=== PATIENT | male | born 1950 | race Caucasian/White ===

== ENCOUNTER 2017-02-16 12:06 | Emergency (ER) | payer MEDICARE, OTHER ==
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
[2017-02-16 13:01] LABS: CHLORIDE,CL 107 mmol/L (101-111); SODIUM,NA 141 mmol/L (135-145)
[2017-02-16] MEDS ORDERED: Iopamidol 612 MG/ML 100 ML Bottle IVPUSH ONE (13:01)
[2017-02-16 13:25] VITALS: BP 174/76
--- NOTE | 2017-02-16 13:50 | CT ---
Clinical history: 66-year-old hypertensive 220 pound male who is had a "stem cell transplant" and ly mphoma presents now with abdominal mass (hernia?). Patient has also had previous cholecystectomy, appendectomy and "colon surgery". TECHNIQUE: Volume acquisition of data from the abdomen and pelvis obtained after oral ingestion one half bottle contrast and during intravenous administration 100 cc nonionic Isovue while lying supine on the Siemens multi slice CT scanner [place], [place]. All data arc hived in the PACS system for storage, reformatting and study. Interpretation: 1. Cardiomegaly. Lung bases clear. Densely calcified "cast" normal caliber aortoiliac vessels. 2. 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 3. *Ventral abdominal wall defect anteriorly with associated, underlying, large infraumbilical herni a, midline. (Some apparent incarceration small bowel loops to the left of midline but... no current signs of associated mechanical small or large bowel obstruction). 4. Sigmoid diverticulosis. 5. Cholecystectomy. Normal liver, stomach, pancreas, adrenal glands and kidneys. (Splenectomy?) 6. No pelvic or abdominal mass lesion, signs of inflammatory "dirty" peritoneal fat, mesenteric or r etroperitoneal lymphadenopathy, mechanical bowel obstruction, ascites or free air. CONCLUSION: Large ventral abdominal wall hernia (without mechanical bowel obstruction). Sigmoid dive rticulosis. Cardiomegaly and other signs of atherosclerotic vascular disease.
== END 2017-02-16 15:15 ==
LOC: DL.ED 12:06
DX: K56.69 Other intestinal obstruction (principal); K43.6 Other and unspecified ventral hernia with obstruction, without gangrene; I51.7 Cardiomegaly; M51.36 Other intervertebral disc degeneration, lumbar region; K57.30 Diverticulosis of large intestine without perforation or abscess without bleeding; I10 Essential (primary) hypertension; Z87.01 Personal history of pneumonia (recurrent); Z87.440 Personal history of urinary (tract) infections; E61.1 Iron deficiency; C85.90 Non-Hodgkin lymphoma, unspecified, unspecified site; Z79.82 Long term (current) use of aspirin; Z79.899 Other long term (current) drug therapy; Z88.2 Allergy status to sulfonamides; Z87.891 Personal history of nicotine dependence
CPT/HCPCS: 36415; 74177; 80053; 85025; 99285; Q9967

== ENCOUNTER 2017-09-03 06:28 | Day surgery (SDC) | payer MEDICARE, OTHER ==
[2017-09-03] MEDS ORDERED: Dexamethasone 4 MG/ML SDV IV ONE (06:29)
[2017-09-03] MEDS ORDERED: Midazolam 1 MG/ML 2 ML SDV IV ONE (06:29)
[2017-09-03] MEDS ORDERED: Proparacaine 0.5% Ophth Soln 15 ML Bottle EYERT ONE (06:30)
[2017-09-03] MEDS ORDERED: Ondansetron 4 MG/2 ML SDV IVPUSH PRN (06:30)
[2017-09-03] MEDS ORDERED: Acetaminophen/Codeine 300-30 MG Tab PO PRN (06:30)
[2017-09-03] MEDS ORDERED: Timolol Maleate 0.5% Ophth Soln 5 ML Bottle EYERT ONE (06:30)
[2017-09-03] MEDS ORDERED: Phenylephrine 10% Ophth Soln 5 ML Bot EYERT PRN (06:30)
[2017-09-03] MEDS ORDERED: Povidone-Iodine 5% Sterile Ophth Soln 30 ML Bottle EYERT ONE ×2 (06:30→08:06)
[2017-09-03] MEDS ORDERED: Cataract Ophth Solution EYERT ONE (06:30)
[2017-09-03] MEDS ORDERED: Moxifloxacin 0.5% Ophth Soln 3 ML Bottle EYERT ONE (06:30)
[2017-09-03] MEDS ORDERED: Acetaminophen 325 MG Tab PO PRN (06:30)
[2017-09-03] MEDS ORDERED: Phenylephrine 10% Ophth Soln 5 ML Bot EYERT ONE (06:30)
[2017-09-03] MEDS ORDERED: Midazolam 1 MG/ML 2 ML SDV ONE (07:23)
[2017-09-03] MEDS ORDERED: Dexamethasone 4 MG/ML SDV ONE (07:23)
[2017-09-03] MEDS: Sodium Chloride 0.9% 10 ML Syringe FLUSH PRN ×2 (07:49→09:24)
[2017-09-03] MEDS ORDERED: Tetracaine HCl/PF 0.5% 4 ML Bottle EYERT ONE (08:06)
[2017-09-03] MEDS ORDERED: Dexamethasone/Tobramycin 0.1-0.3% Ophth Oint 3.5 GM Tube EYERT ONE (08:07)
[2017-09-03] MEDS ORDERED: Diclofenac Sodium 0.1% Ophth Soln 5 ML Bottle EYERT ONE (08:07)
[2017-09-03] MEDS ORDERED: Chondroitin Sulfate/Hyaluronate Sodium Ophth Inj 0.75 ML Syringe EYERT ONE (08:07)
[2017-09-03] MEDS ORDERED: Apraclonidine 0.5% Ophth Soln 5 ML Bot EYERT ONE (08:07)
[2017-09-03] MEDS ORDERED: Lidocaine 1% 30 ML SDV ONE (08:07)
[2017-09-03] MEDS ORDERED: Vancomycin 500 MG SDV EYERT ONE (08:08)
[2017-09-03] MEDS ORDERED: Balanced Salt Solution Ophth Irrig 500 ML Bottle IOCULAR ONE (08:08)
[2017-09-03] MEDS ORDERED: Dexamethasone 4 MG/ML SDV IOCULAR ONE (08:11)
--- NOTE | 2017-09-03 09:45 | OR ---
DATE: 09/03/2017 PREOPERATIVE DIAGNOSIS: Cataract, right eye. POSTOPERATIVE DIAGNOSIS: Cataract, right eye. PROCEDURE: Extracapsular cataract extraction with intraocular lens implant, right eye. ANESTHESIA: Topical/local MAC. COMPLICATIONS: No complications occurred. INDICATION: Mr. Sandhu was seen in the clinic. His examination revealed visually significant cataract. He is symptomatic and requested surgery. Explained risks preoperatively, including but not limited to infection, retinal detachment, loss of vision, need for additional surgery, and risks associated with anesthesia. We discussed implant options. He requested a monofocal implant. OPERATIVE DESCRIPTION: After informed consent was obtained and the risks, benefits, and alternatives were explained, the patient was brought to the operative suite and topical anesthesia was administered. The patient was then prepped and draped in the sterile fashion, and attention was placed on the right eye. A sterile lid speculum was placed into the right eye to allow operative exposure. A full-thickness paracentesis was made in the temporal portion of the operative eye. Preservative-free lidocaine 0.1 mL was injected into the anterior chamber followed by viscoelastic. A full-thickness corneal incision was then made into the anterior chamber. A bent needle cystotome was used to create a small arlene in the anterior capsule. The capsulorrhexis forceps was then used to create a 360-degree curvilinear capsulorrhexis. The nucleus was then removed using a phacoemulsification handpiece and the remaining cortical material was then removed with irrigation and aspiration handpiece. Following removal of the cortical material, the capsular bag was then inspected and noted to be free of any holes or tears. Viscoelastic was then injected into the capsular bag and the intraocular lens was inserted into the capsular bag. The viscoelastic material was then removed from both the anterior and posterior chambers and from behind the IOL. The lens and capsular bag were then reinspected. The IOL was well centered and the capsular bag intact. The wound and paracentesis sites were inspected and hydrated with balanced saline solution. Both were found to be self-sealing. The intraocular pressure was assessed digitally and found to be within normal range. A good red reflex was noted at the completion of the procedure. No complications occurred during the operation. At the completion of the procedure, Maxitrol, Voltaren, and Iopidine drops were placed into the operative eye. A sterile eye shield was placed over the operative eye and the patient was transported to the postoperative recovery area having tolerated the procedure well. Postoperative instructions were given along with a postoperative appointment. The patient was advised to call with any questions or concerns. [facility] /[id number]
[2017-09-03 14:13] VITALS: BP 155/81
== END 2017-09-03 09:21 | disposition home or self-care (01) ==
LOC: DL.SDS 06:28
PROVIDERS: ATTEND Ophthalmology
DX: H25.811 Combined forms of age-related cataract, right eye (principal); Z88.2 Allergy status to sulfonamides; I10 Essential (primary) hypertension; E78.5 Hyperlipidemia, unspecified; C83.10 Mantle cell lymphoma, unspecified site; G45.9 Transient cerebral ischemic attack, unspecified; I48.91 Unspecified atrial fibrillation; Z90.49 Acquired absence of other specified parts of digestive tract; Z98.890 Other specified postprocedural states; Z94.84 Stem cells transplant status; Z87.891 Personal history of nicotine dependence; Z79.82 Long term (current) use of aspirin; Z79.899 Other long term (current) drug therapy; Z79.01 Long term (current) use of anticoagulants
CPT/HCPCS: 00142; 66984; A9270; C1780; J1100; J1642; J2250; J3370; J7050

== ENCOUNTER 2017-09-10 06:41 | Day surgery (SDC) | payer MEDICARE, OTHER ==
[~2017-09-10 06:41] MED LIST: Dilation Soln 1 EA EACH EYELF ONE; Moxifloxacin 0.5% Ophth Soln 3 ML Bottle EYELF ONE; Phenylephrine 10% Ophth Soln 5 ML Bot EYELF ONE; Povidone-Iodine 5% Sterile Ophth Soln 30 ML Bottle EYELF ONE; Proparacaine 0.5% Ophth Soln 15 ML Bottle EYELF ONE; Sodium Chloride 0.9% 10 ML Syringe FLUSH PRN; Timolol Maleate 0.5% Ophth Soln 5 ML Bottle EYELF ONE
[2017-09-10] MEDS ORDERED: Midazolam 1 MG/ML 2 ML SDV IV ONE (06:42)
[2017-09-10] MEDS ORDERED: Dexamethasone 4 MG/ML SDV IV ONE (06:42)
[2017-09-10] MEDS ORDERED: Midazolam 1 MG/ML 2 ML SDV ONE (07:34)
[2017-09-10] MEDS ORDERED: Dexamethasone 4 MG/ML SDV ONE (07:34)
[2017-09-10] MEDS ORDERED: Balanced Salt Solution Ophth Irrig 500 ML Bottle IOCULAR ONE (08:11)
[2017-09-10] MEDS ORDERED: Lidocaine 1% 30 ML SDV ONE (08:11)
[2017-09-10] MEDS ORDERED: Vancomycin 500 MG SDV EYELF ONE (08:11)
[2017-09-10] MEDS ORDERED: Chondroitin Sulfate/Hyaluronate Sodium Ophth Inj 0.75 ML Syringe EYELF ONE (08:12)
[2017-09-10] MEDS ORDERED: Tetracaine HCl/PF 0.5% 4 ML Bottle EYELF ONE (08:12)
[2017-09-10] MEDS ORDERED: Povidone-Iodine 5% Sterile Ophth Soln 30 ML Bottle EYELF ONE (08:12)
[2017-09-10] MEDS ORDERED: Diclofenac Sodium 0.1% Ophth Soln 5 ML Bottle EYELF ONE (08:13)
[2017-09-10] MEDS ORDERED: Dexamethasone/Tobramycin 0.1-0.3% Ophth Oint 3.5 GM Tube EYELF ONE (08:13)
[2017-09-10] MEDS ORDERED: Apraclonidine 0.5% Ophth Soln 5 ML Bot EYELF ONE (08:13)
--- NOTE | 2017-09-10 08:35 | OR ---
DATE: 09/10/2017 PREOPERATIVE DIAGNOSIS: Cataract, left eye. POSTOPERATIVE DIAGNOSIS: Cataract, left eye. PROCEDURE: Extracapsular cataract extraction with intraocular lens implant, left eye. ANESTHESIA: Topical/local MAC. COMPLICATIONS: None. INDICATION: Mr. Sandhu was seen in the clinic with complaints of blurred vision. Examination reveals visually significant cataract. He is symptomatic. He has requested cataract surgery. I explained risks preoperatively including but not limited to, infection, retinal detachment, loss of vision, need for additional surgery, and risks associated with anesthesia. We discussed implant options. He has requested a monofocal implant. OPERATIVE DESCRIPTION: After informed consent was obtained and the risks, benefits, and alternatives were explained, the patient was brought to the operative suite and topical anesthesia was administered. The patient was then prepped and draped in the sterile fashion and attention was placed on the left eye. A sterile lid speculum was placed into the left eye to allow operative exposure. A full-thickness paracentesis was made in the temporal portion of the operative eye. Preservative-free lidocaine 0.1 mL was injected into the anterior chamber followed by viscoelastic. A full-thickness corneal incision was then made into the anterior chamber. A bent needle cystotome was used to create a small arlene in the anterior capsule. The capsulorrhexis forceps was then used to create a 360-degree curvilinear capsulorrhexis. The nucleus was then removed using a phacoemulsification handpiece and the remaining cortical material was then removed with irrigation and aspiration handpiece. Following removal of the cortical material, the capsular bag was then inspected and noted to be free of any holes or tears. Viscoelastic was then injected into the capsular bag and the intraocular lens was inserted into the capsular bag. the viscoelastic material was then removed from both the anterior and posterior chambers and from behind the IOL. The lens and capsular bag were then reinspected. The IOL was well centered and the capsular bag intact. The wound and paracentesis sites were inspected and hydrated with balanced saline solution. Both were found to be self- sealing. The intraocular pressure was assessed digitally and found to be within normal range. A good red reflex was noted at the completion of the procedure. No complications occurred during the operation. At the completion of the procedure, Maxitrol, Voltaren, and Iopidine drops were placed into the operative eye. A sterile eye shield was placed over the operative eye and the patient was transported to the postoperative recovery area having tolerated the procedure well. Postoperative instructions were given along with a postoperative appointment. The patient was advised to call with any questions or concerns. No complications occurred. [facility] /[id number]
[2017-09-10 12:37] VITALS: BP 146/77
== END 2017-09-10 09:21 | disposition home or self-care (01) ==
LOC: DL.SDS 06:41
PROVIDERS: ATTEND Ophthalmology
DX: H25.812 Combined forms of age-related cataract, left eye (principal); I10 Essential (primary) hypertension; E78.5 Hyperlipidemia, unspecified; Z90.49 Acquired absence of other specified parts of digestive tract; Z98.890 Other specified postprocedural states; Z94.84 Stem cells transplant status; Z87.891 Personal history of nicotine dependence; Z90.81 Acquired absence of spleen; Z88.2 Allergy status to sulfonamides; Z79.899 Other long term (current) drug therapy; Z79.82 Long term (current) use of aspirin
CPT/HCPCS: 00142; 66984; A9270; C1780; J1100; J2250; J3370; J7050

== ENCOUNTER 2018-11-24 15:44 | Inpatient (IN) | payer MEDICARE, OTHER ==
[2018-11-24 16:45] LABS: ANION GAP 16.5
[2018-11-24] MEDS ORDERED: Piperacillin/Tazobactam 3.375 GM in Sodium Chloride 0.9% 100 ML IV ONE (16:54)
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
[2018-11-24] MEDS: Vancomycin 1.5 GM in Sodium Chloride 0.9% 500 ML IV SCH (18:35)
[2018-11-24] MEDS ORDERED: Sodium Chloride 0.9% 10 ML Syringe FLUSH PRN (18:48)
[2018-11-24] MEDS ORDERED: Acetaminophen 325 MG Tab PO PRN (18:53)
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
[2018-11-24] MEDS ORDERED: Dextrose 5%-0.9% NaCl 1,000 ML IV SCH (19:30)
[2018-11-24] MEDS: Metoprolol Tartrate 25 MG Tab PO SCH (21:21)
[2018-11-24] MEDS: atorvaSTATin 20 MG Tab PO SCH (21:21)
[2018-11-24] MEDS: oxyCODONE ER 10 MG TAB.ER PO SCH (21:21)
[2018-11-24] MEDS: NIFEdipine 30 MG Tab.ER PO SCH (21:22)
[2018-11-24] MEDS: Rivaroxaban 10 MG Tab PO SCH (21:23)
[2018-11-24] MEDS: Acetaminophen/oxyCODONE 325-5 MG Tab PO PRN (21:27)
[2018-11-25] MEDS: Piperacillin/Tazobactam 2.25 GM in Sodium Chloride 0.9% 50 ML IV SCH ×5 (00:09→23:56)
[2018-11-25 06:43] LABS: ANION GAP 13.4
[2018-11-25] MEDS ORDERED: Potassium Chloride 10 MEQ Tab.ER PO ONE (08:31)
[2018-11-25] MEDS ORDERED: Patient's Own Medication 1 Each PO SCH (09:00)
[2018-11-25] MEDS: Furosemide 40 MG Tab PO SCH (10:20)
[2018-11-25] MEDS: Multivitamins,Therapeutic Tab PO SCH (10:20)
[2018-11-25] MEDS: Aspirin 81 MG Tab.Chew PO SCH (10:20)
--- NOTE | 2018-11-25 11:09 | PCM.PN ---
- General Info Date of Service: 11/25/18 Admission Dx/Problem (Free Text): Admission Diagnosis/Problem Admission Diagnosis/Problem Cellulitis Subjective Update: I saw and examined the patient at the bedside He has no new complaints Cellulitis of right forearm is improving Functional Status: Reports: Pain Controlled - Review of Systems General: Reports: No Symptoms HEENT: Reports: No Symptoms Pulmonary: Reports: No Symptoms Cardiovascular: Reports: No Symptoms Gastrointestinal: Reports: No Symptoms Genitourinary: Reports: No Symptoms Musculoskeletal: Reports: Other (cellulitis of R forearm) - Patient Data Vitals - Most Recent: Last Vital Signs Temp 36.6 C 11/25/18 08:15 Pulse 63 11/25/18 08:15 Resp 20 11/25/18 08:15 BP 118/60 11/25/18 08:15 Pulse Ox 98 11/25/18 08:15 Weight - Most Recent: 101.605 kg I&O - Last 24 Hours: Intake & Output 11/24/18 11/25/18 11/25/18 22:59 06:59 14:59 Intake Total 1000 1100 400 Output Total 1100 Balance 1000 0 400 Lab Results Last 24 Hours: Laboratory Results - last 24 hr 11/24/18 11/24/18 11/24/18 Range/Units 16:18 16:18 16:18 WBC 15.0 H (5.0-10.0) 10^3/uL RBC 3.78 L (4.6-6.2) 10^6/uL Hgb 11.8 L (14.0-18.0) g/dL Hct 36.5 L (40.0-54.0) % MCV 96.6 (80-100) fL MCH 31.2 (27.0-34.0) pg MCHC 32.3 L (33.0-35.0) g/dL Plt Count 675 H D (150-450) 10^3/uL Lymph % (Auto) 16.4 L (20.5-50.1) % [place] % (Auto) 14.0 H (2-8) % Eos % (Auto) 0.2 L (1.0-3.0) % Add Manual Diff Yes Neutrophils % (Manual) 64 (42-75) % Band Neutrophils % 4 % Lymphocytes % (Manual) 15 L (20-50) % Atypical Lymphs % % Monocytes % (Manual) 13 H (2-8) % Eosinophils % (Manual) (1-3) % Basophils % (Manual) Metamyelocytes % 4 PT 11.1 (9.0-12.0) SEC INR 1.1 (0.9-1.2) APTT 32.0 (22.0-34.0) SEC Sodium 138 (135-145) mmol/L Potassium 3.5 L (3.6-5.0) mmol/L Chloride 99 L (101-111) mmol/L Carbon Dioxide 26.0 (21.0-31.0) mmol/L Anion Gap 16.5 BUN 30 H (7-18) mg/dL Creatinine 2.4 H (0.6-1.3) mg/dL Est Cr Clr Drug Dosing 28.64 mL/min Estimated GFR (MDRD) 27 BUN/Creatinine Ratio 12.50 Glucose 114 H (74-105) mg/dL Lactic Acid (0.5-2.2) mmol/L Calcium 8.1 L (8.4-10.2) mg/dl Magnesium (1.8-2.5) mg/dL Total Bilirubin 0.6 (0.2-1.0) mg/dL AST 24 (10-42) IU/L ALT 10 (10-60) IU/L Alkaline Phosphatase 62 (42-121) IU/L Total Protein 6.2 L (6.7-8.2) g/dl Albumin 3.4 (3.2-5.5) g/dl Globulin 2.8 Albumin/Globulin Ratio 1.21 11/24/18 11/25/18 11/25/18 Range/Units 16:18 06:14 06:14 WBC 15.1 H (5.0-10.0) 10^3/uL RBC 3.52 L (4.6-6.2) 10^6/uL Hgb 10.9 L (14.0-18.0) g/dL Hct 34.0 L (40.0-54.0) % MCV 96.6 (80-100) fL MCH 31.0 (27.0-34.0) pg MCHC 32.1 L (33.0-35.0) g/dL Plt Count 659 H (150-450) 10^3/uL Lymph % (Auto) (20.5-50.1) % [place] % (Auto) (2-8) % Eos % (Auto) (1.0-3.0) % Add Manual Diff Yes Neutrophils % (Manual) 63 (42-75) % Band Neutrophils % 6 % Lymphocytes % (Manual) 13 L (20-50) % Atypical Lymphs % 0 % Monocytes % (Manual) 13 H (2-8) % Eosinophils % (Manual) 4 H (1-3) % Basophils % (Manual) 1 Metamyelocytes % PT (9.0-12.0) SEC INR (0.9-1.2) APTT (22.0-34.0) SEC Sodium 137 (135-145) mmol/L Potassium 3.4 L (3.6-5.0) mmol/L Chloride 103 (101-111) mmol/L Carbon Dioxide 24.0 (21.0-31.0) mmol/L Anion Gap 13.4 BUN 27 H (7-18) mg/dL Creatinine 2.0 H (0.6-1.3) mg/dL Est Cr Clr Drug Dosing 34.37 mL/min Estimated GFR (MDRD) 33 BUN/Creatinine Ratio Glucose 104 (74-105) mg/dL Lactic Acid 1.9 (0.5-2.2) mmol/L Calcium 7.9 L (8.4-10.2) mg/dl Magnesium 1.6 L (1.8-2.5) mg/dL Total Bilirubin (0.2-1.0) mg/dL AST (10-42) IU/L ALT (10-60) IU/L Alkaline Phosphatase (42-121) IU/L Total Protein (6.7-8.2) g/dl Albumin (3.2-5.5) g/dl Globulin Albumin/Globulin Ratio Moy Results Last 24 Hours: Microbiology 11/24/18 16:08 Gram Stain - Final Wrist, Right Wound Culture - Preliminary Med Orders - Current: Current Medications Acetaminophen (Tylenol) 325 mg PO DAILY PRN PRN Reason: Pain (mild 1-3) Acyclovir (Zovirax) 400 mg PO Q30D [facility] Aspirin (Aspirin) 81 mg PO DAILY [facility] Last Admin: 11/25/18 10:20 Dose: 81 mg Atorvastatin Calcium (Lipitor) 40 mg PO BEDTIME [facility] Last Admin: 11/24/18 21:21 Dose: 40 mg Furosemide (Lasix) 40 mg PO DAILY [facility] Last Admin: 11/25/18 10:20 Dose: 40 mg Vancomycin HCl 1.5 gm/ Sodium (Chloride) 500 mls @ 333.333 mls/hr IV Q24H [facility] Last Admin: 11/24/18 18:35 Dose: 333.333 mls/hr Piperacillin Sod/Tazobactam (Sod 2.25 gm/ Sodium Chloride) 50 mls @ 100 mls/hr IV Q6HR [facility] Last Admin: 11/25/18 06:14 Dose: 100 mls/hr Metoprolol Tartrate (Lopressor) 25 mg PO BEDTIME [facility] Last Admin: 11/24/18 21:21 Dose: 25 mg Multivitamins (Thera) 1 each PO DAILY [facility] Last Admin: 11/25/18 10:20 Dose: 1 each Nifedipine (Procardia Xl) 30 mg PO BEDTIME [facility] Last Admin: 11/24/18 21:22 Dose: 30 mg Oxycodone HCl (Oxycontin) 10 mg PO BEDTIME [facility] Last Admin: 11/24/18 21:21 Dose: 10 mg Oxycodone/Acetaminophen (Percocet 325-5 Mg) 1 tab PO TID PRN PRN Reason: Pain (moderate 4-6) Last Admin: 11/24/18 21:27 Dose: 1 tab Imbruvica 420 Mg (Tablet Own Med) 420 each PO DAILY [facility] Rivaroxaban (Xarelto) 20 mg PO BEDTIME [facility] Last Admin: 11/24/18 21:23 Dose: 20 mg Sodium Chloride (Saline Flush) 10 ml FLUSH ASDIRECTED PRN PRN Reason: Keep Vein Open Sodium Chloride (Saline Flush) 10 ml FLUSH ASDIRECTED PRN PRN Reason: Keep Vein Open Vancomycin HCl (Pharmacy To Dose - Vancomycin) 1 dose .XX ONETIME ONE Stop: 11/24/18 16:55 Discontinued Medications Piperacillin Sod/Tazobactam (Sod 3.375 gm/ Sodium Chloride) 100 mls @ 200 mls/ hr IV ONETIME ONE Stop: 11/24/18 17:23 Last Admin: 11/24/18 17:13 Dose: 200 mls/hr Dextrose/Sodium Chloride (Dextrose 5%-Normal Saline) 1,000 mls @ 125 mls/hr IV ASDIRECTED [facility] Last Admin: 11/24/18 20:12 Dose: 125 mls/hr Potassium Chloride (Klor-Con 10) 40 meq PO ONETIME ONE Stop: 11/25/18 08:32 Last Admin: 11/25/18 10:20 Dose: 40 meq - Exam General: Alert, Oriented HEENT: Pupils Equal Neck: Supple Lungs: Clear to Auscultation Cardiovascular: Regular Rate, Regular Rhythm GI/Abdominal Exam: Normal Bowel Sounds Extremities: Redness Skin: Other (as prev described, improving right forearm redness and swelling) - Problem List Review Problem List Initiated/Reviewed/Updated: Yes - My Orders Last 24 Hours: My Active Orders 11/24/18 18:48 Patient Status [ADT] Routine May Shower [RC] ASDIRECTED Oxygen Therapy [RC] .PRN Up With Assistance [RC] ASDIRECTED VTE/DVT Education [RC] PER UNIT ROUTINE Vital Signs [RC] 00,04,08,12,16,20 Sodium Chloride 0.9% [Saline Flush] 10 ml FLUSH ASDIRECTED PRN Sodium Chloride 0.9% [Saline Flush] 10 ml FLUSH ASDIRECTED PRN Peripheral IV Insertion Adult [OM.PC] Routine Saline Lock Insert [OM.PC] Routine Resuscitation Status Routine 11/24/18 18:53 Acetaminophen [Tylenol] 325 mg PO DAILY PRN Acetaminophen/oxyCODONE [Percocet 325-5 MG] 1 tab PO TID PRN 11/24/18 21:00 Metoprolol Tartrate [Lopressor] 25 mg PO BEDTIME NIFEdipine [Procardia XL] 30 mg PO BEDTIME Rivaroxaban [Xarelto] 20 mg PO BEDTIME atorvaSTATin [Lipitor] 40 mg PO BEDTIME oxyCODONE ER [OxyCONTIN] 10 mg PO BEDTIME 11/25/18 00:00 Piperacillin/Tazobactam [Zosyn] 2.25 gm Sodium Chloride 0.9% [Normal Saline] 50 ml IV Q6HR 11/25/18 09:00 Aspirin 81 mg PO DAILY Furosemide [Lasix] 40 mg PO DAILY Multivitamins,Therapeutic [Thera] 1 each PO DAILY Patient's Own Medication [Ptom] 420 each PO DAILY 11/25/18 Breakfast Regular Diet [DIET] 11/26/18 05:11 BASIC METABOLIC PANEL,BMP [CHEM] AM CBC WITH AUTO DIFF [HEME] AM MAGNESIUM [CHEM] AM 12/17/18 19:00 Acyclovir [Zovirax] 400 mg PO Q30D - Plan Plan:: #Right forearm cellulitis #Hx of Non-Hodgkins Lymphoma IV Vanc + IV Zosyn renally dosed If lesion does not improve, may need biopsy for possible vasculitis #HX of atrial fibrillation on AC continue metoprolol continue xarelto #Hx of Hypertension BP stable continue home BP meds #CKD Cr at baseline renally dose medications #DVT ppx on xarelto
[2018-11-25] MEDS: IMBRUVICA 420 MG PO SCH (11:53)
[2018-11-25] MEDS: Acetaminophen/oxyCODONE 325-5 MG Tab PO PRN ×2 (17:25→21:55)
[2018-11-25] MEDS: Vancomycin 1.5 GM in Sodium Chloride 0.9% 500 ML IV SCH (17:58)
[2018-11-25] MEDS: NIFEdipine 30 MG Tab.ER PO SCH (21:48)
[2018-11-25] MEDS: Metoprolol Tartrate 25 MG Tab PO SCH (21:48)
[2018-11-25] MEDS: atorvaSTATin 20 MG Tab PO SCH (21:48)
[2018-11-25] MEDS: Rivaroxaban 10 MG Tab PO SCH (21:48)
[2018-11-25] MEDS: oxyCODONE ER 10 MG TAB.ER PO SCH (21:49)
[2018-11-25] MEDS: Sodium Chloride 0.9% 10 ML Syringe FLUSH PRN (23:56)
[2018-11-26] MEDS: Sodium Chloride 0.9% 10 ML Syringe FLUSH PRN ×3 (00:36→06:05)
[2018-11-26] MEDS: Piperacillin/Tazobactam 2.25 GM in Sodium Chloride 0.9% 50 ML IV SCH ×3 (05:33→17:15)
[2018-11-26 06:48] LABS: ANION GAP 15.6
[2018-11-26] MEDS: Multivitamins,Therapeutic Tab PO SCH (08:59)
[2018-11-26] MEDS: Aspirin 81 MG Tab.Chew PO SCH (08:59)
[2018-11-26] MEDS: IMBRUVICA 420 MG PO SCH (08:59)
[2018-11-26] MEDS: Furosemide 40 MG Tab PO SCH (08:59)
[2018-11-26] MEDS: Docusate Sodium 100 MG Cap PO SCH ×2 (13:41→21:16)
[2018-11-26] MEDS: Vancomycin 1.5 GM in Sodium Chloride 0.9% 500 ML IV SCH (17:40)
[2018-11-26] MEDS: Acetaminophen/oxyCODONE 325-5 MG Tab PO PRN ×2 (17:40→21:17)
--- NOTE | 2018-11-26 17:57 | PCM.PN ---
- General Info Date of Service: 11/26/18 Admission Dx/Problem (Free Text): Admission Diagnosis/Problem Admission Diagnosis/Problem Cellulitis Subjective Update: I saw and examined the patient at the bedside He has no new complaints States that cellulitis of right forearm is unchanged from yesterday. Functional Status: Reports: Pain Controlled, Tolerating Diet, Ambulating (No new sympotms. ) - Review of Systems General: Reports: No Symptoms HEENT: Reports: No Symptoms Pulmonary: Reports: No Symptoms Cardiovascular: Reports: No Symptoms Gastrointestinal: Reports: No Symptoms Genitourinary: Reports: No Symptoms Musculoskeletal: Reports: Other (Cellulitis of right dorsal hand, appears to have involved to lower arm but improved, small pocket of bulla on dorsum on hand. ) - Patient Data Vitals - Most Recent: Last Vital Signs Temp 97.3 F 11/26/18 12:24 Pulse 72 11/26/18 12:24 Resp 20 11/26/18 12:24 BP 121/63 11/26/18 12:24 Pulse Ox 98 11/26/18 12:24 Weight - Most Recent: 224 lb 9.6 oz I&O - Last 24 Hours: Intake & Output 11/26/18 11/26/18 11/26/18 06:59 14:59 22:59 Intake Total 100 360 43 Balance 100 360 43 Lab Results Last 24 Hours: Laboratory Results - last 24 hr 11/26/18 11/26/18 Range/Units 06:15 06:15 WBC 15.4 H (5.0-10.0) 10^3/uL RBC 3.45 L (4.6-6.2) 10^6/uL Hgb 10.8 L (14.0-18.0) g/dL Hct 33.8 L (40.0-54.0) % MCV 98.0 (80-100) fL MCH 31.3 (27.0-34.0) pg MCHC 32.0 L (33.0-35.0) g/dL Plt Count 617 H (150-450) 10^3/uL Lymph % (Auto) 13.2 L (20.5-50.1) % [place] % (Auto) 15.8 H (2-8) % Eos % (Auto) 3.6 H (1.0-3.0) % Add Manual Diff Yes Neutrophils % (Manual) 73 (42-75) % Lymphocytes % (Manual) 11 L (20-50) % Monocytes % (Manual) 10 H (2-8) % Eosinophils % (Manual) 6 H (1-3) % Sodium 139 (135-145) mmol/L Potassium 3.6 (3.6-5.0) mmol/L Chloride 103 (101-111) mmol/L Carbon Dioxide 24.0 (21.0-31.0) mmol/L Anion Gap 15.6 BUN 22 H (7-18) mg/dL Creatinine 2.0 H (0.6-1.3) mg/dL Est Cr Clr Drug Dosing 34.37 mL/min Estimated GFR (MDRD) 33 Glucose 95 (74-105) mg/dL Calcium 8.1 L (8.4-10.2) mg/dl Magnesium 1.6 L (1.8-2.5) mg/dL [place] Results Last 24 Hours: Microbiology 11/24/18 16:27 Aerobic Blood Culture - Preliminary Blood - Venous - Lab Draw NO GROWTH AFTER 2 DAYS Anaerobic Blood Culture - Preliminary NO GROWTH AFTER 2 DAYS 11/24/18 16:18 Aerobic Blood Culture - Preliminary Blood - Venous NO GROWTH AFTER 2 DAYS Anaerobic Blood Culture - Preliminary NO GROWTH AFTER 2 DAYS 11/24/18 16:08 Gram Stain - Final Wrist, Right Wound Culture - Preliminary Med Orders - Current: Current Medications Acetaminophen (Tylenol) 325 mg PO DAILY PRN PRN Reason: Pain (mild 1-3) Acyclovir (Zovirax) 400 mg PO Q30D [facility] Aspirin (Aspirin) 81 mg PO DAILY [facility] Last Admin: 11/26/18 08:59 Dose: 81 mg Atorvastatin Calcium (Lipitor) 40 mg PO BEDTIME [facility] Last Admin: 11/25/18 21:48 Dose: 40 mg Docusate Sodium (Colace) 200 mg PO BID [facility] Stop: 11/29/18 21:00 Last Admin: 11/26/18 13:41 Dose: 200 mg Furosemide (Lasix) 40 mg PO DAILY [facility] Last Admin: 11/26/18 08:59 Dose: 40 mg Vancomycin HCl 1.5 gm/ Sodium (Chloride) 500 mls @ 333.333 mls/hr IV Q24H [facility] Last Admin: 11/26/18 17:40 Dose: 333.333 mls/hr Piperacillin Sod/Tazobactam (Sod 2.25 gm/ Sodium Chloride) 50 mls @ 100 mls/hr IV Q6HR [facility] Last Admin: 11/26/18 17:15 Dose: 100 mls/hr Metoprolol Tartrate (Lopressor) 25 mg PO BEDTIME [facility] Last Admin: 11/25/18 21:48 Dose: 25 mg Multivitamins (Thera) 1 each PO DAILY [facility] Last Admin: 11/26/18 08:59 Dose: 1 each Nifedipine (Procardia Xl) 30 mg PO BEDTIME [facility] Last Admin: 11/25/18 21:48 Dose: 30 mg Oxycodone HCl (Oxycontin) 10 mg PO BEDTIME [facility] Last Admin: 11/25/18 21:49 Dose: 10 mg Oxycodone/Acetaminophen (Percocet 325-5 Mg) 1 tab PO TID PRN PRN Reason: Pain (moderate 4-6) Last Admin: 11/26/18 17:40 Dose: 1 tab Imbruvica 420 Mg (Tablet Own Med) 420 each PO DAILY [facility] Last Admin: 11/26/18 08:59 Dose: 420 each Rivaroxaban (Xarelto) 20 mg PO BEDTIME [facility] Last Admin: 11/25/18 21:48 Dose: 20 mg Sodium Chloride (Saline Flush) 10 ml FLUSH ASDIRECTED PRN PRN Reason: Keep Vein Open Last Admin: 11/26/18 06:05 Dose: 10 ml Sodium Chloride (Saline Flush) 10 ml FLUSH ASDIRECTED PRN PRN Reason: Keep Vein Open Vancomycin HCl (Pharmacy To Dose - Vancomycin) 1 dose .XX ONETIME ONE Stop: 11/24/18 16:55 Discontinued Medications Piperacillin Sod/Tazobactam (Sod 3.375 gm/ Sodium Chloride) 100 mls @ 200 mls/ hr IV ONETIME ONE Stop: 11/24/18 17:23 Last Admin: 11/24/18 17:13 Dose: 200 mls/hr Dextrose/Sodium Chloride (Dextrose 5%-Normal Saline) 1,000 mls @ 125 mls/hr IV ASDIRECTED [facility] Last Admin: 11/24/18 20:12 Dose: 125 mls/hr Potassium Chloride (Klor-Con 10) 40 meq PO ONETIME ONE Stop: 11/25/18 08:32 Last Admin: 11/25/18 10:20 Dose: 40 meq - Problem List & Annotations (1) Cellulitis of right upper extremity SNOMED Code(s): 825870689 Code(s): L03.113 - CELLULITIS OF RIGHT UPPER LIMB Status: Acute Current Visit: Yes (2) History of non-Hodgkin's lymphoma SNOMED Code(s): 529813769 Code(s): Z85.72 - PERSONAL HISTORY OF NON-HODGKIN LYMPHOMAS Status: Acute Current Visit: Yes (3) Afib SNOMED Code(s): 67693952 Code(s): I48.91 - UNSPECIFIED ATRIAL FIBRILLATION Status: Acute Current Visit: No - Problem List Review Problem List Initiated/Reviewed/Updated: Yes - My Orders Last 24 Hours: My Active Orders 11/26/18 08:30 Patient Status [ADT] Routine 11/26/18 13:00 Docusate Sodium [Colace] 200 mg PO BID 11/27/18 06:00 CBC WITH AUTO DIFF [HEME] Routine CREATININE W/GFR [CHEM] Routine RENAL FUNCTION PANEL,RFP [CHEM] Routine 11/28/18 17:30 VANCOMYCIN TROUGH [CHEM] Timed - Plan Plan:: #Right forearm cellulitis #Hx of Non-Hodgkins Lymphoma IV Vanc + IV Zosyn renally dosed If lesion does not improve, may need biopsy for possible vasculitis #HX of atrial fibrillation on AC continue metoprolol continue xarelto #Hx of Hypertension BP stable continue home BP meds #CKD Cr at baseline renally dose medications #DVT ppx on xarelto
[2018-11-26] MEDS: NIFEdipine 30 MG Tab.ER PO SCH (21:15)
[2018-11-26] MEDS: Rivaroxaban 10 MG Tab PO SCH (21:15)
[2018-11-26] MEDS: Metoprolol Tartrate 25 MG Tab PO SCH (21:15)
[2018-11-26] MEDS: atorvaSTATin 20 MG Tab PO SCH (21:16)
[2018-11-26] MEDS: oxyCODONE ER 10 MG TAB.ER PO SCH (21:16)
[2018-11-27] MEDS: Piperacillin/Tazobactam 2.25 GM in Sodium Chloride 0.9% 50 ML IV SCH ×6 (05:50→17:11)
[2018-11-27 07:04] LABS: ANION GAP 13.4
[2018-11-27] MEDS: Multivitamins,Therapeutic Tab PO SCH (08:45)
[2018-11-27] MEDS: Aspirin 81 MG Tab.Chew PO SCH (08:45)
[2018-11-27] MEDS: Furosemide 40 MG Tab PO SCH (08:46)
[2018-11-27] MEDS: Docusate Sodium 100 MG Cap PO SCH (08:46)
[2018-11-27] MEDS: IMBRUVICA 420 MG PO SCH (08:46)
[2018-11-27] MEDS ORDERED: Potassium Chloride 10 MEQ Tab.ER PO ONE (10:00)
--- NOTE | 2018-11-27 12:34 | PCM.DCSUM1 ---
Discharge Summary - Hospital Course Free Text/Narrative:: 68 yo M with PMH of Non-Hodgkin's Lymphoma on Rituxan, atrial fibrillation on xarelto, CKD 3-4, hypertension who presents with redness and swelling of the right forearm and hand of three days duration. Also noticed small rash on dorsal aspect of left hand and rash under the left eyelid. The admitting provider discussed with Dr. Sullivan ([phone]) and he informed the admitting provider that patient has had a similiar rash in the past that was treated with IV antibiotics with resolution. They agreed to give it a trial in this case. However given the multiple lesions, this could be an underlying vasculitis ( that was secondarily infected) and may need a biopsy. Started on IV Zosyn and IV Vanc. Rash did not improve much for [address] Sullivan, who agreed that patient be discharged and to receive daily vancomycin infusion as outpatient with follow up with General Surgery and Dr. Sullivan. Patient agreed to be discharged home to receive outpatient vancomycin infusion daily. He was scheduled to see general surgeon for biopsy on 11/30/2018 and to follow up with Dr. Sullivan on 12/03/18. Diagnosis: Stroke: No - Discharge Data Discharge Date: 11/27/18 Discharge Disposition: Home, Self-Care 01 Condition: Good - Discharge Diagnosis/Problem(s) (1) Cellulitis of right upper extremity SNOMED Code(s): 649853794 ICD Code: L03.113 - CELLULITIS OF RIGHT UPPER LIMB Status: Acute Current Visit: Yes (2) History of non-Hodgkin's lymphoma SNOMED Code(s): 971418650 ICD Code: Z85.72 - PERSONAL HISTORY OF NON-HODGKIN LYMPHOMAS Status: Acute Current Visit: Yes (3) Afib SNOMED Code(s): 46102441 ICD Code: I48.91 - UNSPECIFIED ATRIAL FIBRILLATION Status: Acute Current Visit: No - Patient Instructions Diet: Regular Diet as Tolerated Activity: As Tolerated Showering/Bathing: May Shower (Cover right hand with dressing before shower. ) Wound/Incision Care: Keep Operative Site/Wound Site Clean and Dry, Change Dressing Daily Notify Provider of: Fever, Increased Pain, Swelling and Redness, Drainage - Discharge Plan *PRESCRIPTION DRUG MONITORING PROGRAM REVIEWED*: No *COPY OF PRESCRIPTION DRUG MONITORING REPORT IN PATIENT NADJA: Not Applicable Home Medications: Home Meds Aspirin [Maryam Chewable Aspirin] 81 mg PO DAILY 08/13/14 [History] Multivit-Min/FA/Lycopene/Lut [Centrum Silver] 1 tab PO DAILY 08/13/14 [History] Metoprolol Tartrate 25 mg PO BEDTIME 09/11/16 [History] Rivaroxaban [Xarelto] 20 mg PO BEDTIME 09/11/16 [History] atorvaSTATin [Lipitor] 40 mg PO BEDTIME 09/11/16 [History] oxyCODONE HCl/Acetaminophen [Oxycodone-Acetaminophen 5-325] 1 tab PO TID PRN [History] Acetaminophen 325 mg PO DAILY PRN 10/02/18 [History] Acyclovir [Zovirax] 400 mg PO .MONTHLY 11/24/18 [History] Furosemide 40 mg PO DAILY 11/24/18 [History] Ibrutinib [Imbruvica] 420 mg PO DAILY 11/24/18 [History] NIFEdipine [Nifedipine ER] 30 mg PO BEDTIME 11/24/18 [History] oxyCODONE ER [OxyCONTIN] 10 mg PO BEDTIME 11/24/18 [History] Acetaminophen [Tylenol] 325 mg PO DAILY PRN tablet 11/27/18 [Rx] Patient's Own Medication [Ptom] 420 each PO DAILY each 11/27/18 [Rx] Rivaroxaban [Xarelto] 20 mg PO BEDTIME tablet 11/27/18 [Rx] Vancomycin 1.5 gm IV Q24H sdv 11/27/18 [Rx] Oxygen Therapy Mode: Room Air Forms: ED Department Discharge Referrals: PCP,None [Primary Care Provider] - - Discharge Summary/Plan Comment DC Time >30 min.: Yes - General Info Admission Dx/Problem (Free Text: Admission Diagnosis/Problem Admission Diagnosis/Problem Cellulitis Subjective Update: No acute events overnight. Reports he is doing okay today. Lesion on right arm has not improved and also not worsened. Functional Status: Reports: Pain Controlled - Review of Systems General: Reports: No Symptoms HEENT: Reports: No Symptoms Pulmonary: Reports: No Symptoms Cardiovascular: Reports: No Symptoms, Lightheadedness Gastrointestinal: Reports: No Symptoms Genitourinary: Reports: No Symptoms Musculoskeletal: Reports: No Symptoms Skin: Reports: Rash (Unchanged. ) Neurological: Reports: No Symptoms Psychiatric: Reports: No Symptoms - Patient Data Vitals - Most Recent: Last Vital Signs Temp 98.5 F 11/27/18 11:32 Pulse 60 11/27/18 11:32 Resp 18 11/27/18 11:32 BP 120/57 L 11/27/18 11:32 Pulse Ox 97 11/27/18 11:32 Weight - Most Recent: 224 lb 12.8 oz I&O - Last 24 hours: Intake & Output 11/26/18 11/27/18 11/27/18 22:59 06:59 14:59 Intake Total 283 50 460 Balance 283 50 460 Lab Results - Last 24 hrs: Laboratory Results - last 24 hr 11/27/18 11/27/18 Range/Units 06:25 06:25 WBC 15.9 H (5.0-10.0) 10^3/uL RBC 3.34 L (4.6-6.2) 10^6/uL Hgb 10.4 L (14.0-18.0) g/dL Hct 32.8 L (40.0-54.0) % MCV 98.2 (80-100) fL MCH 31.1 (27.0-34.0) pg MCHC 31.7 L (33.0-35.0) g/dL Plt Count 615 H (150-450) 10^3/uL Add Manual Diff Yes Neutrophils % (Manual) 76 H (42-75) % Lymphocytes % (Manual) 11 L (20-50) % Monocytes % (Manual) 9 H (2-8) % Eosinophils % (Manual) 4 H (1-3) % Sodium 139 (135-145) mmol/L Potassium 3.4 L (3.6-5.0) mmol/L Chloride 105 (101-111) mmol/L Carbon Dioxide 24.0 (21.0-31.0) mmol/L Anion Gap 13.4 BUN 21 H (7-18) mg/dL Creatinine 2.0 H (0.6-1.3) mg/dL Est Cr Clr Drug Dosing 34.37 mL/min Estimated GFR (MDRD) 33 BUN/Creatinine Ratio 10.50 Glucose 85 (74-105) mg/dL Calcium 7.8 L (8.4-10.2) mg/dl Phosphorus 4.5 (2.5-4.6) mg/dL Albumin 3.0 L (3.2-5.5) g/dl ANITRA Results - Last 24 hrs: Microbiology 11/24/18 16:08 Gram Stain - Final Wrist, Right Wound Culture - Final Staphylococcus Aureus 11/24/18 16:27 Aerobic Blood Culture - Preliminary Blood - Venous - Lab Draw NO GROWTH AFTER 2 DAYS Anaerobic Blood Culture - Preliminary NO GROWTH AFTER 2 DAYS 11/24/18 16:18 Aerobic Blood Culture - Preliminary Blood - Venous NO GROWTH AFTER 2 DAYS Anaerobic Blood Culture - Preliminary NO GROWTH AFTER 2 DAYS Med Orders - Current: Current Medications Acetaminophen (Tylenol) 325 mg PO DAILY PRN PRN Reason: Pain (mild 1-3) Acyclovir (Zovirax) 400 mg PO Q30D [facility] Aspirin (Aspirin) 81 mg PO DAILY [facility] Last Admin: 11/27/18 08:45 Dose: 81 mg Atorvastatin Calcium (Lipitor) 40 mg PO BEDTIME [facility] Last Admin: 11/26/18 21:16 Dose: 40 mg Docusate Sodium (Colace) 200 mg PO BID [facility] Stop: 11/29/18 21:00 Last Admin: 11/27/18 08:46 Dose: Not Given Furosemide (Lasix) 40 mg PO DAILY [facility] Last Admin: 11/27/18 08:46 Dose: 40 mg Vancomycin HCl 1.5 gm/ Sodium (Chloride) 500 mls @ 333.333 mls/hr IV Q24H [facility] Last Admin: 11/26/18 17:40 Dose: 333.333 mls/hr Piperacillin Sod/Tazobactam (Sod 2.25 gm/ Sodium Chloride) 50 mls @ 100 mls/hr IV Q6HR [facility] Last Admin: 11/27/18 11:54 Dose: 100 mls/hr Metoprolol Tartrate (Lopressor) 25 mg PO BEDTIME [facility] Last Admin: 11/26/18 21:15 Dose: 25 mg Multivitamins (Thera) 1 each PO DAILY [facility] Last Admin: 11/27/18 08:45 Dose: 1 each Nifedipine (Procardia Xl) 30 mg PO BEDTIME [facility] Last Admin: 11/26/18 21:15 Dose: 30 mg Oxycodone HCl (Oxycontin) 10 mg PO BEDTIME [facility] Last Admin: 11/26/18 21:16 Dose: 10 mg Oxycodone/Acetaminophen (Percocet 325-5 Mg) 1 tab PO TID PRN PRN Reason: Pain (moderate 4-6) Last Admin: 11/26/18 21:17 Dose: 1 tab Imbruvica 420 Mg (Tablet Own Med) 420 each PO DAILY [facility] Last Admin: 11/27/18 08:46 Dose: 420 each Rivaroxaban (Xarelto) 20 mg PO BEDTIME [facility] Last Admin: 11/26/18 21:15 Dose: 20 mg Sodium Chloride (Saline Flush) 10 ml FLUSH ASDIRECTED PRN PRN Reason: Keep Vein Open Last Admin: 11/26/18 06:05 Dose: 10 ml Sodium Chloride (Saline Flush) 10 ml FLUSH ASDIRECTED PRN PRN Reason: Keep Vein Open Vancomycin HCl (Pharmacy To Dose - Vancomycin) 1 dose .XX ONETIME ONE Stop: 11/24/18 16:55 Discontinued Medications Piperacillin Sod/Tazobactam (Sod 3.375 gm/ Sodium Chloride) 100 mls @ 200 mls/ hr IV ONETIME ONE Stop: 11/24/18 17:23 Last Admin: 11/24/18 17:13 Dose: 200 mls/hr Dextrose/Sodium Chloride (Dextrose 5%-Normal Saline) 1,000 mls @ 125 mls/hr IV ASDIRECTED [facility] Last Admin: 11/24/18 20:12 Dose: 125 mls/hr Potassium Chloride (Klor-Con 10) 40 meq PO ONETIME ONE Stop: 11/25/18 08:32 Last Admin: 11/25/18 10:20 Dose: 40 meq Potassium Chloride (Klor-Con 10) 20 meq PO ONETIME ONE Stop: 11/27/18 10:01 Last Admin: 11/27/18 10:40 Dose: 20 meq - Exam General: Reports: Alert, Oriented, No Acute Distress HEENT: Reports: Pupils Equal, Pupils Reactive, EOMI, Mucous Membr. Moist/[place] Neck Neck: Reports: Supple Lungs: Reports: Clear to Auscultation, Normal Respiratory Effort Cardiovascular: Reports: Regular Rate, Regular Rhythm GI/Abdominal Exam: Normal Bowel Sounds, Soft, Non-Tender, No Distention (Male) Exam: Deferred Extremities: No Pedal Edema, Redness, Other (area of erythema and bulla on dorsum of right hand unchanged.) Skin: Reports: Other Neurological: Reports: No New Focal Deficit Psy/Mental Status: Reports: Alert, Normal Affect
[2018-11-27] MEDS: Vancomycin 1.5 GM in Sodium Chloride 0.9% 500 ML IV SCH ×2 (15:20→17:11)
[2018-11-27] MEDS: Sodium Chloride 0.9% 10 ML Syringe FLUSH PRN (15:21)
[2018-11-27 15:55] VITALS: BP 119/40
[2018-12-17] MEDS ORDERED: Acyclovir 200 MG Cap PO SCH (19:00)
== END 2018-11-27 17:49 | disposition home or self-care (01) | DRG 546 ==
LOC: DL.ED 15:44 → DL.MS 17:15 → UNDOADMOB 17:15 → DL.MS 18:48 → OBSVTOIN 11-26 08:30
PROVIDERS: ADMIT Hospitalist; ATTEND Hospitalist
DX: I77.6 Arteritis, unspecified (principal); L03.113 Cellulitis of right upper limb; Z94.84 Stem cells transplant status; N18.4 Chronic kidney disease, stage 4 (severe); I10 Essential (primary) hypertension; C85.90 Non-Hodgkin lymphoma, unspecified, unspecified site; I48.91 Unspecified atrial fibrillation; I12.9 Hypertensive chronic kidney disease with stage 1 through stage 4 chronic kidney disease, or unspecified chronic kidney disease; G89.29 Other chronic pain; Z79.899 Other long term (current) drug therapy; M54.9 Dorsalgia, unspecified; Z88.2 Allergy status to sulfonamides; E66.9 Obesity, unspecified; Z68.34 Body mass index [BMI] 34.0-34.9, adult; E61.1 Iron deficiency; R21 Rash and other nonspecific skin eruption; Z79.01 Long term (current) use of anticoagulants; Z79.82 Long term (current) use of aspirin; H54.7 Unspecified visual loss; Z86.73 Personal history of transient ischemic attack (TIA), and cerebral infarction without residual deficits; H91.90 Unspecified hearing loss, unspecified ear; Z92.21 Personal history of antineoplastic chemotherapy
CPT/HCPCS: 36415 ×3; 80048 ×2; 80053; 83605; 83735 ×2; 85025 ×3; 85610; 85730; 87040 ×2; 87070; 87205; 96374; 99283; A9270 ×17; J2543 ×7; J3370 ×2; J7040 ×2; J7042; J7050 ×7; 80069; 87077; 87186

== ENCOUNTER 2019-01-16 08:56 | Emergency (ER) | payer MEDICARE, OTHER ==
[2019-01-16] MEDS ORDERED: Sodium Chloride 0.9% 10 ML Syringe FLUSH PRN (09:04)
[2019-01-16] MEDS ORDERED: Lactated Ringers 1,000 ML IV ONE (09:06)
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
[2019-01-16 09:19] VITALS: BP 117/56
[2019-01-16 09:37] LABS: ANION GAP 16.6
[2019-01-16] MEDS ORDERED: Piperacillin/Tazobactam 3.375 GM in Sodium Chloride 0.9% 100 ML IV ONE (09:42)
[2019-01-16] MEDS ORDERED: Vancomycin 1.5 GM in Sodium Chloride 0.9% 500 ML IV ONE (09:42)
[2019-01-16] MEDS ORDERED: Acetaminophen 500 MG Tab PO ONE (10:39)
== END 2019-01-16 11:29 ==
LOC: DL.ED 08:56
DX: A41.9 Sepsis, unspecified organism (principal); J10.1 Influenza due to other identified influenza virus with other respiratory manifestations; D72.829 Elevated white blood cell count, unspecified; I63.81 Other cerebral infarction due to occlusion or stenosis of small artery; R79.89 Other specified abnormal findings of blood chemistry; I10 Essential (primary) hypertension; Z86.73 Personal history of transient ischemic attack (TIA), and cerebral infarction without residual deficits; Z85.72 Personal history of non-Hodgkin lymphomas; Z79.82 Long term (current) use of aspirin; Z79.899 Other long term (current) drug therapy; Z88.2 Allergy status to sulfonamides
CPT/HCPCS: 36415; 70450; 71045; 80053; 81001; 82962; 83605; 83880; 84484; 85025; 86140; 87040; 87081; 87430; 93005; 96361; 96365; 96367; 99285; A9270; J2543; J3370; J7040; J7050; J7120

== ENCOUNTER 2019-03-18 12:34 | Emergency (ER) | payer MEDICARE, OTHER ==
[2019-03-18] MEDS ORDERED: Sodium Chloride 0.9% 10 ML Syringe FLUSH PRN (12:50)
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
--- NOTE | 2019-03-18 13:16 | CR ---
Clinical history: 68-year-old male with non-Hodgkin's lymphoma post chemotherapy) on anticoagulant therapy who experienced a syncopal episode and fall (head injury). Interpretation: Upright AP portable chest film unremarkable except for poor inspiratory effort. Chest unchanged except for technique compared to January 2019 exam. No new cephalization of vascular flow or alveolar edema. No new lung mass hilar lymphadenopathy or focal lobar pneumonia. Note: Unable to identify the left hemidiaphragm which most probably represents technique but if clinical signs (?) suggest follow-up upright PA/lateral films.
--- NOTE | 2019-03-18 13:20 | CT ---
Clinical history: 68-year-old male with non-Hodgkin's lymphoma injured in a fall (scalp hematoma). "No intracranial mass or bleed". Scan technique: Volume acquisition of data emergency CT scan of the cervical spine obtained while the patient was lying supine on the Siemens multislice scanner [place], [place]. All data archived in the PACS system for storage, reformatting axial/sagittal/coronal planes and study. Interpretation: Abnormal. 1. Reversal of usual cervical lordosis associated with signs of chronic multilevel mid/lower cervical disc disease i.e. interspace narrowing endplate sclerosis and hypertrophic marginal/uncinate spur formation C3-C4, C4-5, C5-C6, C6-C7 levels. 2. *No pathologic skeletal lesion, prevertebral soft tissue swelling, cervical fracture, spondylolisthesis or jumped locked facets. 3. No cervical rib anomalies. Lung apices clear.
[2019-03-18 13:21] LABS: ANION GAP 18.2; CHLORIDE,CL 103 mmol/L (101-111); SODIUM,NA 137 mmol/L (135-145)
== END 2019-03-18 14:34 ==
LOC: DL.ED 12:34
DX: S06.0X1A Concussion with loss of consciousness of 30 minutes or less, initial encounter (principal); S00.03XA Contusion of scalp, initial encounter; C85.90 Non-Hodgkin lymphoma, unspecified, unspecified site; R40.2410 Glasgow coma scale score 13-15, unspecified time; I48.2 Chronic atrial fibrillation; Z79.82 Long term (current) use of aspirin; Z79.899 Other long term (current) drug therapy; W18.39XA Other fall on same level, initial encounter
CPT/HCPCS: 36415; 70450; 71045; 72125; 80053; 80305-QW; 81001; 82962; 84484; 85025; 85610; 85730; 87086; 93005; 99285-25; G0480

== ENCOUNTER 2019-07-26 10:00 | Emergency (ER) | payer MEDICARE, OTHER ==
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
[2019-07-26 10:18] VITALS: BP 140/69; PULSE 79
[2019-07-26] MEDS ORDERED: Colchicine 0.6 MG Tab PO ONE (10:25)
[2019-07-26] MEDS ORDERED: predniSONE 20 MG Tab PO ONE (10:25)
[2019-07-26] MEDS ORDERED: Ondansetron 4 MG Tab.DIS PO ONE (10:26)
== END 2019-07-26 11:01 | disposition home or self-care (01) ==
LOC: DL.ED 10:00
DX: M10.9 Gout, unspecified (principal); I10 Essential (primary) hypertension; E66.9 Obesity, unspecified; I48.91 Unspecified atrial fibrillation; Z79.82 Long term (current) use of aspirin; Z79.899 Other long term (current) drug therapy; Z98.890 Other specified postprocedural states; Z98.52 Vasectomy status; Z90.49 Acquired absence of other specified parts of digestive tract; Z68.30 Body mass index [BMI] 30.0-30.9, adult; Z88.2 Allergy status to sulfonamides; Z91.09 Other allergy status, other than to drugs and biological substances
CPT/HCPCS: 99283; A9270

== ENCOUNTER 2019-11-11 12:37 | Emergency (ER) | payer MEDICARE, OTHER ==
[2019-11-11] MEDS ORDERED: Sodium Chloride 0.9% 10 ML Syringe FLUSH PRN (12:50)
[2019-11-11] MEDS ORDERED: Sodium Chloride 0.9% 1,000 ML IV ONE (12:50)
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
[2019-11-11 13:54] VITALS: BP 80/39; PULSE 72
== END 2019-11-11 14:05 ==
LOC: DL.ED 12:37
DX: D61.818 Other pancytopenia (principal); I95.89 Other hypotension; H91.90 Unspecified hearing loss, unspecified ear; H54.7 Unspecified visual loss; I48.91 Unspecified atrial fibrillation; I10 Essential (primary) hypertension; M54.9 Dorsalgia, unspecified; G89.29 Other chronic pain; E66.9 Obesity, unspecified; C83.10 Mantle cell lymphoma, unspecified site; Z79.01 Long term (current) use of anticoagulants; Z88.2 Allergy status to sulfonamides; Z91.048 Other nonmedicinal substance allergy status; Z79.82 Long term (current) use of aspirin; Z87.01 Personal history of pneumonia (recurrent); Z87.440 Personal history of urinary (tract) infections; Z79.899 Other long term (current) drug therapy; Z87.820 Personal history of traumatic brain injury; Z90.49 Acquired absence of other specified parts of digestive tract; Z68.30 Body mass index [BMI] 30.0-30.9, adult
CPT/HCPCS: 36415; 80053; 85025; 96360; 99285; J7030; 99284

== ENCOUNTER 2020-01-14 09:00 | Observation (INO) | payer MEDICARE, OTHER ==
[2020-01-14] MEDS ORDERED: HYDROmorphone 0.5 MG/0.5 ML Syringe IVPUSH ONE (09:39)
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
[2020-01-14 10:00] LABS: ANION GAP 13.2
[2020-01-14] MEDS ORDERED: Ondansetron 4 MG/2 ML SDV IVPUSH PRN (12:10)
[2020-01-14] MEDS ORDERED: Docusate Sodium 100 MG Cap PO PRN (12:10)
[2020-01-14] MEDS ORDERED: Magnesium Hydroxide 400 MG/5 ML Susp 30 ML Cup PO PRN (12:10)
[2020-01-14] MEDS ORDERED: Polyethylene Glycol 3350 Powder 17 GM Packet PO PRN (12:10)
[2020-01-14] MEDS ORDERED: oxyCODONE ER 10 MG TAB.ER PO PRN (12:15)
[2020-01-14] MEDS ORDERED: Acetaminophen/oxyCODONE 325-5 MG Tab PO SCH (14:00)
[2020-01-14] MEDS ORDERED: oxyCODONE 5 MG Tab PO SCH (14:00)
[2020-01-14] MEDS: Morphine 2 MG/ML Syringe IVPUSH PRN ×2 (14:34→16:41)
[2020-01-14] MEDS: Lidocaine 5% 700 MG Patch TOP SCH (16:45)
[2020-01-14] MEDS: Heparin Sodium 5,000 Units/ML Vial SUBCUT SCH ×2 (16:45→22:43)
[2020-01-14] MEDS: METHYLPHENIDATE 5 MG PO SCH (16:46)
--- NOTE | 2020-01-14 18:37 | HP ---
CHIEF COMPLAINT: Intense back pain. HISTORY OF PRESENTING ILLNESS: Mr. Juice Sandhu is a 69-year-old male with medical history significant for hypertension, hyperlipidemia, history of atrial fibrillation, non-Hodgkin lymphoma, chronic kidney disease, presented to the ER with complaints of increasing back pain. The patient had a CT scan of the lumbar spine recently, 3 days back, which showed evidence of L3 compression fracture and was actually scheduled to see Interventional Radiology for possible kyphoplasty, but as his pain was getting worse, he came to the ER and is unable to ambulate secondary to the pain, requiring admission to the hospital. At this time, the patient says that the pain has been going on for the last 4 weeks, which has been progressively getting worse. The pain is sharp in nature, towards lumbar spine area, nonradiating type of pain, aggravated on ambulation and relieved partially with pain medication. Denies any weakness, numbness, or tingling to his lower extremities. Denies any loss of bladder tone. Denies any loss of rectal tone. Normal bowel and bladder habits otherwise. The patient has been using a walker for several months now secondary to having risk of falls. He denies any fevers or chills in the last few days. No recent falls. No recent trauma. The patient denied any history of chest pains on exertion. No history of dyspnea on exertion. No history of orthopnea or paroxysmal nocturnal dyspnea. The patient denied any history of hematemesis, hematochezia, or melenic stools. Normal bowel and bladder habits otherwise. REVIEW OF SYSTEMS: A complete review of systems including skin, ear, nose, and throat; cardiovascular system; respiratory system; gastrointestinal system; genitourinary system; hematology; oncology; neurology; allergy; immunology; and constitutional were all evaluated and were negative, except for the above-said notes. PAST MEDICAL HISTORY: Significant for hypertension, hyperlipidemia, atrial fibrillation, non-Hodgkin lymphoma, chronic kidney disease, chronic congestive heart failure with diastolic dysfunction, and history of gout. PAST SURGICAL HISTORY: Significant for wrist surgery, splenectomy, appendicectomy, hernia repair, and cholecystectomy. FAMILY HISTORY: Significant for COPD in his mother and COPD in his father. Early with defect in a sister. Cancer in his paternal grandfather. SOCIAL HISTORY: The patient had history of smoking tobacco in the past, but quit smoking in 1985. No history of alcohol intake. No history of substance use. ALLERGIES: The patient was noted to have allergies to sulfa antibiotics and tapes HOME MEDICATIONS: Include prednisone 40 mg daily as needed for gout, febuxostat 40 mg daily, nifedipine 30 mg at bedtime, Lipitor 40 mg daily, oxycodone 10 mg q.12 hourly as needed, Endocet 10/325 mg 3 times a day, ritalin 5 mg twice a day, and Lexapro 10 mg daily. PHYSICAL EXAMINATION: Vital Signs: Temperature of 98.3, pulse of 77, blood pressure of 126/60, respiratory rate of 18, and saturating at 99% on room air. General Appearance: The patient is well oriented to time, place, and person. Follows commands spontaneously. Cardiovascular System: S1, S2 heard with normal intensity. No gallops. Respiratory System: Clear to auscultation bilaterally. No wheeze. No crepitations. Abdomen: Soft. Bowel sounds positive. Nontender. No rigidity. Extremities: No edema of bilateral lower extremities. Neurology: No gross focal neurological deficits. LABORATORY DATA: WBC 23, hemoglobin 9.3, hematocrit 29.4, and platelet count 546. Sodium 135, potassium 3.2, chloride 101, bicarb 24, BUN 21, creatinine 1.8, and glucose 141. ASSESSMENT: 1. Intractable low back pain. 2. L3 compression fracture. 3. Non-Hodgkin's lymphoma. 4. Leukocytosis. 5. Hypertension. 6. Hyperlipidemia. 7. Paroxysmal atrial fibrillation. 8. Chronic congestive heart failure with diastolic dysfunction. 9. Hypokalemia. PLAN: 1. Intractable low back pain. The patient presents with intractable low back pain. The patient had a CT scan of the lumbar spine outpatient and noted to have L3 compression fracture. No evidence of spinal involvement at that time. We will proceed to get an MRI scan of the lumbar spine to make sure the patient does not have any spinal cord compression, and we will closely follow. The patient has an upcoming appointment with IR for possible kyphoplasty, and the patient will be encouraged to keep that appointment. We will start him on Lidoderm transdermal patch. We will have him on IV morphine and continue with oral pain medications for better control of the pain. The patient does not have any gross focal neurological deficit appreciated at this time. 2. Hypertension. The patient's blood pressure seems to be in acceptable range. Continue with nifedipine. 3. Paroxysmal atrial fibrillation. The patient is not on any anticoagulation for now. This will be further addressed by his primary care physician as an outpatient. 4. Leukocytosis. The patient has underlying non-Hodgkin's lymphoma and has been on therapies, unsure if this is resulting from his therapies. Discussed with his primary oncologist, Dr. Sullivan. No further investigational studies needed at this time. 5. DVT prophylaxis. We will have him on heparin for DVT prophylaxis. 6. Hypokalemia. The patient's potassium down to 3.2. We will have him on oral potassium chloride. Recheck a BMP in a.m. 7. Code status. The patient wants to be full code. 8. Discussed with Dr. Deandre Sullivan. Discussed with Jasbir Shanks, ER staff, regarding the plan of care. Reviewed the labs and medications. Reviewed the old charts. For medical history is summarized as above. Discussed with family members at bedside. [facility] /[id number] DESMOND
[2020-01-14] MEDS: NIFEDIPINE 30 MG PO SCH (22:43)
[2020-01-14] MEDS: Acetaminophen/oxyCODONE 325-5 MG Tab PO PRN (22:52)
[2020-01-15] MEDS: Heparin Sodium 5,000 Units/ML Vial SUBCUT SCH ×3 (06:40→21:02)
[2020-01-15] MEDS: METHYLPHENIDATE 5 MG PO SCH ×2 (06:40→16:15)
[2020-01-15 07:03] LABS: ANION GAP 14.3
[2020-01-15] MEDS: Morphine 2 MG/ML Syringe IVPUSH PRN ×3 (07:41→21:02)
[2020-01-15] MEDS: Acetaminophen/oxyCODONE 325-5 MG Tab PO PRN ×2 (07:44→16:12)
[2020-01-15] MEDS: Lidocaine 5% 700 MG Patch TOP SCH (08:21)
[2020-01-15] MEDS: ATORVASTATIN 40 MG PO SCH (08:22)
[2020-01-15] MEDS: PREDNISONE 20 MG PO PRN (08:23)
[2020-01-15] MEDS: ESCITALOPRAM 10 MG PO SCH (08:23)
[2020-01-15] MEDS: FEBUXOSTAT 40 MG PO SCH (08:23)
[2020-01-15] MEDS: Potassium Chloride 10 MEQ Tab.ER PO SCH ×3 (11:56→16:11)
--- NOTE | 2020-01-15 13:43 | PN ---
DATE: 01/15/2020 HISTORY OF PRESENT ILLNESS: Mr. Juice Sandhu is a 69-year-old male with a medical history significant for hypertension, hyperlipidemia, atrial fibrillation, non-Hodgkin lymphoma, chronic kidney disease admitted with increasing back pain. Noted to have acute compression fracture of the lumbar spine. Admitted to the hospital with acute low back pain. For the last 24 hours, the patient continues to have pain, which is mostly in the lower back region. He grades the pain as 5 to 6 out of 10 in intensity, which gets aggravated on movement, relieved with pain medication. Nonradiating type of pain, not associated with nausea or vomiting. Denies any chest pain. No shortness of breath. REVIEW OF SYSTEMS: Cardiovascular, respiratory, gastrointestinal, neurology, constitutional were all evaluated. PHYSICAL EXAMINATION: Vital Signs: Temperature of 99.2, pulse of 79, blood pressure 116/45, respiratory rate of 20, saturating at 92%. General Appearance: The patient is well oriented to time, place, and person. Follows commands spontaneously. Cardiovascular System: S1, S2 heard with normal intensity. No gallops. Respiratory System: Clear to auscultation bilaterally. No wheeze. No crepitations. Abdomen: Soft. Bowel sounds positive. Nontender. No rigidity. Extremities: No edema of bilateral lower extremities. MEDICATIONS: Reviewed. Continue with heparin 5000 subcutaneous q.8 hours for DVT prophylaxis, morphine 2 mg IV q.2 hours as needed, Procardia XL 30 mg at bedtime, Lipitor 40 mg daily, OxyContin 10 mg q.12 hours for pain, oxycodone 1 tablet 3 times a day as needed, potassium chloride 20 mEq 3 times a day, prednisone 40 mg daily as needed. LABORATORY DATA: Sodium 138, potassium 3.3, chloride 102, bicarb 25, BUN 20, creatinine 1.7, glucose 127. ASSESSMENT: 1. Intractable low back pain. 2. Acute lumbar compression fracture. 3. Non-Hodgkin lymphoma. 4. Leukocytosis. 5. Hypertension. 6. Hyperlipidemia. 7. Paroxysmal atrial fibrillation. 8. Chronic congestive heart failure with diastolic dysfunction. 9. Hypokalemia. PLAN: 1. Intractable low back pain. The patient is currently on IV and oral pain medication. We will increase the OxyContin dose to 20 mg twice a day and continue with Percocet as needed and IV pain medication as needed for better pain control. We have him on Lidoderm transdermal patch, also continue the same. The patient is actually scheduled for possible kyphoplasty as an outpatient with IR at [facility]. This will be followed as an outpatient. 2. Hypokalemia. We will replace with oral potassium chloride. 3. Hypertension. The patient's blood pressure seems to be in acceptable range. Continue with current antihypertensive medications with Procardia XL 30 mg daily. 4. The patient will be kept on stool softeners. 5. DVT prophylaxis. Continue with the heparin for DVT prophylaxis. [facility] /[id number]
[2020-01-15] MEDS: NIFEDIPINE 30 MG PO SCH (20:59)
[2020-01-15] MEDS: oxyCODONE ER 10 MG TAB.ER PO PRN (21:00)
[2020-01-16] MEDS: METHYLPHENIDATE 5 MG PO SCH ×2 (06:18→16:05)
[2020-01-16] MEDS: Acetaminophen/oxyCODONE 325-5 MG Tab PO PRN ×2 (06:18→16:04)
[2020-01-16] MEDS: Heparin Sodium 5,000 Units/ML Vial SUBCUT SCH ×2 (06:18→14:43)
[2020-01-16] MEDS: PREDNISONE 20 MG PO PRN (09:04)
[2020-01-16] MEDS: ESCITALOPRAM 10 MG PO SCH (09:05)
[2020-01-16] MEDS: Potassium Chloride 10 MEQ Tab.ER PO SCH ×3 (09:05→16:04)
[2020-01-16] MEDS: FEBUXOSTAT 40 MG PO SCH (09:05)
[2020-01-16] MEDS: oxyCODONE ER 10 MG TAB.ER PO PRN (09:06)
[2020-01-16] MEDS: Lidocaine 5% 700 MG Patch TOP SCH (09:07)
[2020-01-16] MEDS: ATORVASTATIN 40 MG PO SCH (09:07)
[2020-01-16] MEDS: Morphine 2 MG/ML Syringe IVPUSH PRN ×2 (10:53→18:16)
--- NOTE | 2020-01-16 11:24 | PCM.PN ---
- General Info Date of Service: 01/16/20 Admission Dx/Problem (Free Text): Intractable back pain Functional Status: Reports: Pain Controlled - Patient Data Vitals - Most Recent: Last Vital Signs Temp 98.9 F 01/16/20 08:22 Pulse 74 01/16/20 08:22 Resp 20 01/16/20 08:22 BP 118/60 01/16/20 08:22 Pulse Ox 94 L 01/16/20 08:22 Weight - Most Recent: 202 lb 4 oz I&O - Last 24 Hours: Intake & Output 01/15/20 01/16/20 01/16/20 22:59 06:59 14:59 Intake Total 440 Balance 440 Lab Results Last 24 Hours: Laboratory Results - last 24 hr 01/16/20 Range/Units 06:06 WBC 22.4 H (5.0-10.0) 10^3/uL RBC 2.61 L (4.6-6.2) 10^6/uL Hgb 8.3 L (14.0-18.0) g/dL Hct 26.3 L (40.0-54.0) % MCV 100.8 H (80-100) fL MCH 31.8 (27.0-34.0) pg MCHC 31.6 L (33.0-35.0) g/dL Plt Count 492 H (150-450) 10^3/uL Med Orders - Current: Current Medications Docusate Sodium (Colace) 100 mg PO BID PRN PRN Reason: Constipation Escitalopram Oxalate (Lexapro) 10 mg PO DAILY [facility] Last Admin: 01/16/20 09:05 Dose: 10 mg Heparin Sodium (Porcine) (Heparin Sodium) 5,000 units SUBCUT Q8HR [facility] Last Admin: 01/16/20 06:18 Dose: 5,000 units Lidocaine (Lidoderm 5%) 700 mg TOP DAILY [facility] Last Admin: 01/16/20 09:07 Dose: 700 mg Magnesium Hydroxide (Milk Of Magnesia) 30 ml PO Q12H PRN PRN Reason: Constipation Miscellaneous Information (Remove Patch) 1 ea TRDERM BEDTIME [facility] Last Admin: 01/15/20 20:38 Dose: Not Given Morphine Sulfate (Morphine) 2 mg IVPUSH Q2H PRN PRN Reason: Pain (severe 7-10) Last Admin: 01/16/20 10:53 Dose: 2 mg Nifedipine (Procardia Xl) 30 mg PO BEDTIME [facility] Last Admin: 01/15/20 20:59 Dose: 30 mg Atorvastatin [ Lipitor] 40 Mg Pt Own Med 40 mg PO DAILY [facility] Last Admin: 01/16/20 09:07 Dose: 40 mg Febuxostat 40 Mg (Pt Own Med) 40 mg PO DAILY [facility] Last Admin: 01/16/20 09:05 Dose: 40 mg Methylphenidate [ Ritalin] 5 Mg Pt Own Med 5 mg PO BIDAC [facility] Last Admin: 01/16/20 06:18 Dose: 5 mg Ondansetron HCl (Zofran) 4 mg IVPUSH Q4H PRN PRN Reason: Nausea/Vomiting Oxycodone HCl (Oxycontin) 20 mg PO Q12H PRN PRN Reason: Pain Last Admin: 01/16/20 09:06 Dose: 20 mg Oxycodone/Acetaminophen (Percocet 325-5 Mg) 1 tab PO TID PRN PRN Reason: Pain Last Admin: 01/16/20 06:18 Dose: 1 tab Polyethylene Glycol (Miralax) 17 gm PO DAILY PRN PRN Reason: Constipation Potassium Chloride (Klor-Con 10) 20 meq PO TIDMEALS [facility] Last Admin: 01/16/20 10:59 Dose: 20 meq Prednisone (Prednisone) 40 mg PO DAILY PRN PRN Reason: Other Last Admin: 01/16/20 09:04 Dose: 40 mg Discontinued Medications Hydromorphone HCl (Dilaudid) 0.5 mg IVPUSH ONETIME ONE Stop: 01/14/20 09:40 Last Admin: 01/14/20 09:55 Dose: 0.5 mg Oxycodone HCl (Oxycontin) 10 mg PO Q12H PRN PRN Reason: Pain Last Admin: 01/14/20 22:44 Dose: 10 mg Oxycodone HCl (Oxycodone) 10 mg PO TID [facility] Oxycodone/Acetaminophen (Percocet 325-5 Mg) 2 tab PO TID [facility] Last Admin: 01/14/20 13:18 Dose: 2 tab Sepsis Event Note - Evaluation Sepsis Screening Result: No Definite Risk - Focused Exam Vital Signs: Vital Signs Temp Pulse Resp BP Pulse Ox 01/16/20 08:22 98.9 F 74 20 118/60 94 L Date Exam was Performed: 01/16/20 Time Exam was Performed: 11:24 - Problem List & Annotations (1) Hypokalemia SNOMED Code(s): 59991402 Code(s): E87.6 - HYPOKALEMIA Status: Acute Current Visit: Yes (2) Hypertension SNOMED Code(s): 39114714 Code(s): I10 - ESSENTIAL (PRIMARY) HYPERTENSION Status: Acute Current Visit: Yes (3) Hyperlipidemia SNOMED Code(s): 66608891 Code(s): E78.5 - HYPERLIPIDEMIA, UNSPECIFIED Status: Acute Current Visit : Yes (4) Lumbar compression fracture SNOMED Code(s): 607919159 Code(s): S32.000A - WEDGE COMPRESSION FRACTURE OF UNSP LUMBAR VERTEBRA, INIT Status: Acute Current Visit: Yes (5) Paroxysmal atrial fibrillation SNOMED Code(s): 919271175 Code(s): I48.0 - PAROXYSMAL ATRIAL FIBRILLATION Status: Acute Current Visit: Yes (6) CHF (congestive heart failure) SNOMED Code(s): 60107878 Code(s): I50.9 - HEART FAILURE, UNSPECIFIED Status: Acute Current Visit: No (7) Intractable low back pain SNOMED Code(s): 82033812006152430 Code(s): M54.5 - LOW BACK PAIN Status: Acute Current Visit: No (8) Leukocytosis SNOMED Code(s): 938907717, 467541679 Code(s): D72.829 - ELEVATED WHITE BLOOD CELL COUNT, UNSPECIFIED Status: Acute Current Visit: No Qualifiers: Leukocytosis type: unspecified Qualified Code(s): D72.829 - Elevated white blood cell count, unspecified - My Orders Last 24 Hours: My Active Orders 01/16/20 11:20 Ready for Discharge [RC] PER UNIT ROUTINE
--- NOTE | 2020-01-16 11:30 | PCM.DCSUM1 ---
Discharge Summary - Hospital Course Free Text/Narrative:: Mr. Hoffman is a 69-year-old male with medical history significant for hypertension, hyperlipidemia, atrial fibrillation, non-Hodgkin's lymphoma, CKD, CHF, and chronic pain who was admitted for increasing back pain. He was noted to have compression fracture of the lumbar spine. Patient was started on topical lidocaine and IV morphine. Pain significantly improved. This morning, patient was able to get out of bed with assistance from nursing staff without significant pain. He endorses that he has enough support at home. He is discharged home to follow-up with his oncologist and to obtain kyphoplasty by IR as outpatient. HPI Initial Comments: See H&P Diagnosis: Stroke: No - Discharge Data Discharge Date: 01/16/20 Discharge Disposition: Home, Self-Care 01 Condition: Good - Referral to Home Health Primary Care Physician: Amira Pardo MD - Discharge Diagnosis/Problem(s) (1) Hypokalemia SNOMED Code(s): 07314051 ICD Code: E87.6 - HYPOKALEMIA Status: Acute Current Visit: Yes (2) Hypertension SNOMED Code(s): 59468368 ICD Code: I10 - ESSENTIAL (PRIMARY) HYPERTENSION Status: Acute Current Visit: Yes (3) Hyperlipidemia SNOMED Code(s): 30264470 ICD Code: E78.5 - HYPERLIPIDEMIA, UNSPECIFIED Status: Acute Current Visit : Yes (4) Lumbar compression fracture SNOMED Code(s): 321047939 ICD Code: S32.000A - WEDGE COMPRESSION FRACTURE OF UNSP LUMBAR VERTEBRA, INIT Status: Acute Current Visit: Yes (5) Paroxysmal atrial fibrillation SNOMED Code(s): 037635076 ICD Code: I48.0 - PAROXYSMAL ATRIAL FIBRILLATION Status: Acute Current Visit: Yes (6) CHF (congestive heart failure) SNOMED Code(s): 38462587 ICD Code: I50.9 - HEART FAILURE, UNSPECIFIED Status: Acute Current Visit : No (7) Intractable low back pain SNOMED Code(s): 86403352405862801 ICD Code: M54.5 - LOW BACK PAIN Status: Acute Current Visit: No (8) Leukocytosis SNOMED Code(s): 465002886, 036535071 ICD Code: D72.829 - ELEVATED WHITE BLOOD CELL COUNT, UNSPECIFIED Status: Acute Current Visit: No Qualifiers: Leukocytosis type: unspecified Qualified Code(s): D72.829 - Elevated white blood cell count, unspecified - Discharge Plan *PRESCRIPTION DRUG MONITORING PROGRAM REVIEWED*: Not Applicable *COPY OF PRESCRIPTION DRUG MONITORING REPORT IN PATIENT NADJA: Not Applicable Prescriptions/Med Rec: Lidocaine 5% [Lidoderm 5%] 700 mg TOP DAILY 14 Days #14 patch Home Medications: Home Meds atorvaSTATin [Lipitor] 40 mg PO DAILY 09/11/16 [History] NIFEdipine [Nifedipine ER] 30 mg PO BEDTIME 11/24/18 [History] Escitalopram [Lexapro] 10 mg PO DAILY 10/02/19 [History] Febuxostat 40 mg PO DAILY 10/02/19 [History] Methylphenidate [Ritalin] 5 mg PO BID 10/02/19 [History] oxyCODONE ER [OxyCONTIN] 10 mg PO Q12H PRN 10/02/19 [History] oxyCODONE HCl/Acetaminophen [Percocet 5-325 mg Tablet] 1 tab PO TID PRN [History] predniSONE [Prednisone] 40 mg PO DAILY PRN MDD GOUT PAIN 01/14/20 [History] Lidocaine 5% [Lidoderm 5%] 700 mg TOP DAILY 14 Days #14 patch 01/16/20 [Rx] Referrals: PCP,Unobtain [Ordering Only Provider] - - Discharge Summary/Plan Comment DC Time >30 min.: Yes - General Info Date of Service: 01/16/20 Admission Dx/Problem (Free Text: Intractable low back pain Subjective Update: Acute events overnight. Patient reports that his pain is improved. Nursing staff also endorsed the patient's transfer from bed is significantly improved compared to yesterday. Patient denies fevers, chills, shortness of breath, chest pain, nausea, vomiting, diarrhea, constipation, dysuria, hematuria, edema , or any other new symptoms. - Patient Data Vitals - Most Recent: Last Vital Signs Temp 98.9 F 01/16/20 08:22 Pulse 74 01/16/20 08:22 Resp 20 01/16/20 08:22 BP 118/60 01/16/20 08:22 Pulse Ox 94 L 01/16/20 08:22 Weight - Most Recent: 202 lb 4 oz I&O - Last 24 hours: Intake & Output 01/15/20 01/16/2020 22:59 06:59 14:59 Intake Total 440 Balance 440 Lab Results - Last 24 hrs: Laboratory Results - last 24 hr 01/16/20 Range/Units 06:06 WBC 22.4 H (5.0-10.0) 10^3/uL RBC 2.61 L (4.6-6.2) 10^6/uL Hgb 8.3 L (14.0-18.0) g/dL Hct 26.3 L (40.0-54.0) % MCV 100.8 H (80-100) fL MCH 31.8 (27.0-34.0) pg MCHC 31.6 L (33.0-35.0) g/dL Plt Count 492 H (150-450) 10^3/uL Med Orders - Current: Current Medications Docusate Sodium (Colace) 100 mg PO BID PRN PRN Reason: Constipation Escitalopram Oxalate (Lexapro) 10 mg PO DAILY [facility] Last Admin: 01/16/20 09:05 Dose: 10 mg Heparin Sodium (Porcine) (Heparin Sodium) 5,000 units SUBCUT Q8HR [facility] Last Admin: 01/16/20 06:18 Dose: 5,000 units Lidocaine (Lidoderm 5%) 700 mg TOP DAILY [facility] Last Admin: 01/16/20 09:07 Dose: 700 mg Magnesium Hydroxide (Milk Of Magnesia) 30 ml PO Q12H PRN PRN Reason: Constipation Miscellaneous Information (Remove Patch) 1 ea TRDERM BEDTIME [facility] Last Admin: 01/15/20 20:38 Dose: Not Given Morphine Sulfate (Morphine) 2 mg IVPUSH Q2H PRN PRN Reason: Pain (severe 7-10) Last Admin: 01/16/20 10:53 Dose: 2 mg Nifedipine (Procardia Xl) 30 mg PO BEDTIME [facility] Last Admin: 01/15/20 20:59 Dose: 30 mg Atorvastatin [ Lipitor] 40 Mg Pt Own Med 40 mg PO DAILY [facility] Last Admin: 01/16/20 09:07 Dose: 40 mg Febuxostat 40 Mg (Pt Own Med) 40 mg PO DAILY [facility] Last Admin: 01/16/20 09:05 Dose: 40 mg Methylphenidate [ Ritalin] 5 Mg Pt Own Med 5 mg PO BIDAC [facility] Last Admin: 01/16/20 06:18 Dose: 5 mg Ondansetron HCl (Zofran) 4 mg IVPUSH Q4H PRN PRN Reason: Nausea/Vomiting Oxycodone HCl (Oxycontin) 20 mg PO Q12H PRN PRN Reason: Pain Last Admin: 01/16/20 09:06 Dose: 20 mg Oxycodone/Acetaminophen (Percocet 325-5 Mg) 1 tab PO TID PRN PRN Reason: Pain Last Admin: 01/16/20 06:18 Dose: 1 tab Polyethylene Glycol (Miralax) 17 gm PO DAILY PRN PRN Reason: Constipation Potassium Chloride (Klor-Con 10) 20 meq PO TIDMEALS [facility] Last Admin: 01/16/20 10:59 Dose: 20 meq Prednisone (Prednisone) 40 mg PO DAILY PRN PRN Reason: Other Last Admin: 01/16/20 09:04 Dose: 40 mg Discontinued Medications Hydromorphone HCl (Dilaudid) 0.5 mg IVPUSH ONETIME ONE Stop: 01/14/20 09:40 Last Admin: 01/14/20 09:55 Dose: 0.5 mg Oxycodone HCl (Oxycontin) 10 mg PO Q12H PRN PRN Reason: Pain Last Admin: 01/14/20 22:44 Dose: 10 mg Oxycodone HCl (Oxycodone) 10 mg PO TID [facility] Oxycodone/Acetaminophen (Percocet 325-5 Mg) 2 tab PO TID [facility] Last Admin: 01/14/20 13:18 Dose: 2 tab - Exam General: Reports: Alert, Oriented, Cooperative, Mild Distress HEENT: Reports: Pupils Equal, Pupils Reactive, Mucous Membr. Moist/[place] Neck: Reports: Supple Lungs: Reports: Clear to Auscultation, Normal Respiratory Effort Cardiovascular: Reports: Regular Rate, Regular Rhythm, Murmurs GI/Abdominal Exam: Normal Bowel Sounds, Soft, No Distention Extremities: Normal Inspection, Non-Tender, No Pedal Edema Skin: Reports: Warm, Dry, Intact Neurological: Reports: No New Focal Deficit Psy/Mental Status: Reports: Alert, Normal Affect, Normal Mood
[2020-01-16 15:45] VITALS: BP 131/66; PULSE 79
== END 2020-01-16 19:30 | disposition home or self-care (01) ==
LOC: DL.ED 09:00 → DL.MS 10:36
PROVIDERS: ADMIT Internal Medicine; ATTEND Internal Medicine
DX: M54.5 Low back pain (principal); I13.0 Hypertensive heart and chronic kidney disease with heart failure and stage 1 through stage 4 chronic kidney disease, or unspecified chronic kidney disease; N18.9 Chronic kidney disease, unspecified; I50.32 Chronic diastolic (congestive) heart failure; E78.5 Hyperlipidemia, unspecified; G89.29 Other chronic pain; E87.6 Hypokalemia; S32.000A Wedge compression fracture of unspecified lumbar vertebra, initial encounter for closed fracture; I48.0 Paroxysmal atrial fibrillation; D72.829 Elevated white blood cell count, unspecified; C85.90 Non-Hodgkin lymphoma, unspecified, unspecified site; E66.9 Obesity, unspecified; Z79.899 Other long term (current) drug therapy; Z87.891 Personal history of nicotine dependence; Z79.82 Long term (current) use of aspirin; Z88.2 Allergy status to sulfonamides; Z88.8 Allergy status to other drugs, medicaments and biological substances
CPT/HCPCS: 36415; 72146; 72148; 80048; 80053; 81003; 85025; 85027; 99285; A9270; J1170; J1642; J1644; J2270

== ENCOUNTER 2020-03-23 11:41 | Emergency (ER) | payer MEDICARE, OTHER ==
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
[2020-03-23] MEDS ORDERED: Sodium Chloride 0.9% 500 ML IV SCH (11:45)
[2020-03-23] MEDS ORDERED: HYDROmorphone 1 MG/ML Syringe IVPUSH ONE (11:46)
[2020-03-23] MEDS ORDERED: Ondansetron 4 MG/2 ML SDV IV ONE (11:46)
[2020-03-23 12:25] LABS: ANION GAP 11.6 mEq/L (7-13); CHLORIDE,CL 103 mmol/L (98-107); SODIUM,NA 140 mmol/L (136-145)
[2020-03-23 12:27] VITALS: BP 128/70; PULSE 105
== END 2020-03-23 13:52 ==
LOC: DL.ED 11:41
DX: R40.4 Transient alteration of awareness (principal); R44.3 Hallucinations, unspecified; G89.29 Other chronic pain; M54.5 Low back pain; S32.039S Unspecified fracture of third lumbar vertebra, sequela; I48.91 Unspecified atrial fibrillation; I10 Essential (primary) hypertension; Z86.73 Personal history of transient ischemic attack (TIA), and cerebral infarction without residual deficits; E66.9 Obesity, unspecified; Z79.899 Other long term (current) drug therapy; Z88.2 Allergy status to sulfonamides
CPT/HCPCS: 36415; 71045; 80053; 85025; 96361; 96374; 96375; 99285; J1170; J2405; J7040